=== PATIENT | female | born 1985 | race American Indian/Alaskan Native ===

== ENCOUNTER 2018-05-12 11:32 | Inpatient (IN) | payer BC, MEDICAID ==
[2018-05-12 11:41] VITALS: BMI 37.2
--- NOTE | 2018-05-12 11:58 | ED PDOC ---
Arrival/HPI - General Chief Complaint: High Blood Pressure Time Seen by Provider: 05/12/18 11:54 Historian: Patient - History of Present Illness Narrative History of Present Illness (Text): 05/12/18 11:57 32 f with pmhx of hypertension and a gastric sleeve surgery last year presents to the ED with high blood pressure earlier today. Patient states she is experiencing a headache. Patient reports she has not taken her medication for the past 6-7 months and was sent to the ER by Dr. Vincent, who she saw earlier today. Patient states she has taken 2 pills of Aleve and 3 pills of Advil for the pain to no relief. Patient denies any chest pain, nausea, vomiting or any other complaints. PMD: Dr. Vincent Time/Duration: 4-6 hours (earlier today) Symptom Onset: Gradual Activities at Onset: Light Context: Other (Doctor's office) Past Medical History - Provider Review Nursing Documentation Reviewed: Yes - Infectious Disease Hx of Infectious Diseases: None - Tetanus Immunization Tetanus Immunization: Unknown - Cardiac Hx Cardiac Disorders: Yes Hx Hypertension: Yes - Pulmonary Hx Respiratory Disorders: No - Neurological Hx Neurological Disorder: No - HEENT Hx HEENT Disorder: No - Renal Hx Renal Disorder: No - Endocrine/Metabolic Hx Endocrine Disorders: No - Hematological/Oncological Hx Blood Disorders: No - Integumentary Hx Dermatological Disorder: No - Musculoskeletal/Rheumatological Hx Musculoskeletal Disorders: No - Gastrointestinal Hx Gastrointestinal Disorders: No - Genitourinary/Gynecological Hx Genitourinary Disorders: No - Psychiatric Hx Psychophysiologic Disorder: No Hx Substance Use: No - Past Surgical History Past Surgical History: No Previous - Surgical History Hx Section: Yes (x1) Other/Comment: gastric sleeve - Anesthesia Hx Anesthesia: No Hx Anesthesia Reactions: No Hx Malignant Hyperthermia: No - Suicidal Assessment Feels Threatened In Home Enviroment: No Family/Social History - Physician Review Nursing Documentation Reviewed: Yes Family/Social History: No Known Family HX Smoking Status: Never Smoked Hx Alcohol Use: No Hx Substance Use: No Hx Substance Use Treatment: No Allergies/Home Meds Allergies/Adverse Reactions: Allergies No Known Allergies Allergy (Verified 03/29/15 05:23) Review of Systems - Physician Review All systems were reviewed & negative as marked: Yes - Review of Systems Cardiovascular: absent: Chest Pain Gastrointestinal: absent: Nausea, Vomiting Neurological: Headache Physical Exam - Physical Exam Narrative Physical Exam (Text): 05/12/18 12:00 Gen: VS reviewed, alert, well developed, well nourished, nontoxic, mild distress. ENT: normal pharynx. Eye: EOMI, PERRL. Neck: no JVD, supple, no adenopathy. CV: regular rate, regular rhythm, no rubs, no murmur, no gallops, S1, S2, pulses equal and strong. Pulm: no distress, clear to auscultation, no wheeze, no rhonchi, breath sounds equal, no rales. Abd: soft, nontender, no guarding, no rebound, no rigidity, normal bowel sounds. Ext: no edema. Skin: good color, no rash, no cyanosis. Psych: responds appropriately to questions, normal affect. Neuro: oriented x 3, CN2-12 intact grossly, motor intact, sensation intact. Vital Signs Reviewed: Yes Vital Signs Temp Pulse Resp BP Pulse Ox 05/12/18 11:33 99.5 F 104 H 18 229/151 H 97 Temperature: Afebrile Blood Pressure: Hypertensive Pulse: Tachycardic Respiratory Rate: Normal Appearance: Positive for: Well-Appearing, Non-Toxic Medical Decision Making ED Course and Treatment: 05/12/18 15:28 Leaving Against Medical Advice (AMA): The patient is choosing to leave against medical advice. I have personally explained to the patient that choosing to do so may result in permanent bodily harm or . I have discussed at great length that without further evaluation and monitoring there may be unforeseen circumstances and/or deterioration causing permanent bodily harm, disability or as a result of their choice. The patient is alert, oriented, and shows the mental capacity to make clear decisions regarding the patients health care at this time. The patient continues to wish to leave against medical advice. In light of the patients decision to leave against medical advice, follow-up has been arranged and the patient is aware of the importance to following up as instructed. The patient has been advised that they should return to the em ergency room immediately if they change their mind at any time, or if their condition begins to change or worsen in any way. 05/12/18 15:55 for over the past hour i have been back and forth explaining to the patient the severity of her illness and its critical nature. i have even had a discussion with the patient's godmother to attempt to convince patient to stay. at this time, the patient's godmother is coming to the ED to assist talking the patient to stay for admission. in the meantime, the patient's blood pressure has progessively escalated back to critical level- will retart gonzález hutson. 05/12/18 16:40 Patient has decided to stay. 05/12/18 16:[address] meadows, patient to be admitted for severe hypertension requiring IV titrateable medication. awaiting phone call back from icu for admission/disposition. 05/12/18 17:[address] ernst, core filer, will see pt in consultation - Critical Care Critical Care Minutes: 30 minutes (critical care for critical illness, multiple bedside evaluations and management updates to the patient) - RAD Interpretation Narrative RAD Interpretations (Text): 05/12/18 14:11 Procedure: Head CT without contrast Time: 05/12/2018 13:52:11 Dictator: Eva Dan MD Impression: No acute intracranial pathology identified. System Specialist: Radiologist - EKG Interpretation EKG Interpretation (Text): 05/12/18 16:37 1149: sinus tachycardia at 101 bpm, nml qrs, nml axis, lvh, nonspecific t wave abn Interpreted by ED Physician: Yes - Scribe Statement The provider has reviewed the documentation as recorded by the Brayden Woods All medical record entries made by the Scribe were at my direction and personally dictated by me. I have reviewed the chart and agree that the record accurately reflects my personal performance of the history, physical exam, medical decision making, and the department course for this patient. I have also personally directed, reviewed, and agree with the discharge instructions and disposition. Disposition/Present on Arrival - Present on Arrival History of DVT/PE: No History of Uncontrolled Diabetes: No Urinary Catheter: No History of Decub. Ulcer: No History Surgical Site Infection Following: None - Disposition Forms: Qu[place] (Romansh)
[2018-05-12] MEDS: Nicardipine 20 MG/200 ML 20 MG/200 ML BAG IV PRN ×3 (12:24→15:52)
[2018-05-12 12:29] LABS: BASO # 0.02 K/mm3 (0.0-2.0); BASO % 0.3 % (0.0-3.0); EOS # 0.1 (0.0-0.7); EOS % 1.3 % (1.5-5.0); GRAN # 4.65 (1.4-6.5); GRAN % 65.3 % (50.0-68.0); LYMPH # 1.8 (1.2-3.4); LYMPH % 24.7 % (22.0-35.0); MEAN CELL VOLUME 74.6 fl (80.0-105.0); MEAN CORPUSCULAR HEMOGLOBIN 23.1 pg (25.0-35.0); MEAN CORPUSCULAR HGB CONC 30.9 g/dl (31.0-37.0); MONO # 0.6 (0.1-0.6); MONO % 8.4 % (1.0-6.0); PLATELET COUNT 212 10^3/uL (120.0-450.0); RBC 4.77 10^6/uL (3.5-6.1); RED CELL DISTRIBUTION WIDTH 17.4 % (11.5-14.5); WHITE BLOOD COUNT 7.1 10^3/uL (4.5-11.0)
[2018-05-12 12:33] LABS: INR 1.18; PARTIAL THROMBOPLASTIN TIME 25.9 Seconds (25.1-36.5); PROTHROMBIN TIME 13.6 SECONDS (9.4-12.5)
[2018-05-12 12:42] LABS: ALB/GLOB RATIO 1.1 (1.1-1.8); ALBUMIN 4.1 g/dL (3.0-4.8); ALT/SGPT 20 U/L (7-56); AST/SGOT 28 U/L (14-36); BLOOD UREA NITROGEN 18 mg/dL (7-21); CALCIUM 8.3 mg/dL (8.4-10.5); GFR NON-AFRICAN AMERICAN > 60
[2018-05-12 12:53] LABS: TROPONIN I < 0.01 ng/mL
[2018-05-12 13:48] LABS: BARBITURATES, UR NEGATIVE (NEGATIVE); BENZODIAZEPINES, UR NEGATIVE (NEGATIVE); OPIATES, UR NEGATIVE (NEGATIVE); PHENCYCLIDINE, UR NEGATIVE (NEGATIVE)
--- NOTE | 2018-05-12 13:56 | CT ---
Date of service: 05/12/2018 PROCEDURE: CT HEAD WITHOUT CONTRAST. HISTORY: headache, ICH COMPARISON: None available. TECHNIQUE: Axial computed tomography images were obtained through the head/brain without intravenous contrast. Radiation dose: Total exam DLP = 858.8 mGy-cm. This CT exam was performed using one or more of the following dose reduction techniques: Automated exposure control, adjustment of the mA and/or kV according to patient size, and/or use of iterative reconstruction technique. FINDINGS: HEMORRHAGE: No intracranial hemorrhage. BRAIN: No mass effect or edema. No atrophy or chronic microvascular ischemic changes. VENTRICLES: No hydrocephalus. CALVARIUM: Unremarkable. PARANASAL SINUSES: Unremarkable as visualized. No significant inflammatory changes. MASTOID AIR CELLS: Unremarkable as visualized. No inflammatory changes. OTHER FINDINGS: None. IMPRESSION: No acute intracranial pathology identified.
--- NOTE | 2018-05-12 15:14 | CARD ---
APPROVED REPORT Date of service: 05/12/2018 EKG Measurement Heart [id number] <Conclusion> Sinus tachycardia Possible Left atrial enlargement Borderline ECG
[2018-05-12] MEDS ORDERED: Nicardipine 20 MG/200 ML 20 MG/200 ML BAG IV PRN (15:57)
--- NOTE | 2018-05-12 17:57 | CP.PCM.CON ---
History of Present Illness - History of Present Illness History of Present Illness: MICU CONSULT NOTE HPI Patient is 32yo female with PMHx of obesity s/p gastric surgery, HTN, not on any home meds, presents after being sent in from her PMDs office for elevated SBP ~250 (as per the ER staff). Pt notes since yesterday she has had a headache, taken 2-3 Adivl pills, without any alleviation. Upon presentation to the ER pts BP 229/151, started on Cardene drip. Pt reports she took herself off Lisinipril few months ago. Denies CP, SOB, palpitations, dizziness, N/V, abd pain. No other constitutional symptoms. PMHx obesity, HTN PSHx gastric surgery Meds NONE FHx NC Social denies smoking, drug use;+ occasional etoh Allergies NKDA Review of Systems - Review of Systems Review of Systems: as per HPI Past Patient History - Infectious Disease Hx of Infectious Diseases: None - Tetanus Immunizations Tetanus Immunization: Unknown - Past Social History Smoking Status: Never Smoked - CARDIAC Hx Cardiac Disorders: Yes Hx Hypertension: Yes - PULMONARY Hx Respiratory Disorders: No - NEUROLOGICAL Hx Neurological Disorder: No - HEENT Hx HEENT Problems: No - RENAL Hx Chronic Kidney Disease: No - ENDOCRINE/METABOLIC Hx Endocrine Disorders: No - HEMATOLOGICAL/ONCOLOGICAL Hx Blood Disorders: No - INTEGUMENTARY Hx Dermatological Problems: No - MUSCULOSKELETAL/RHEUMATOLOGICAL Hx Musculoskeletal Disorders: No - GASTROINTESTINAL Hx Gastrointestinal Disorders: No - GENITOURINARY/GYNECOLOGICAL Hx Genitourinary Disorders: No - PSYCHIATRIC Hx Psychophysiologic Disorder: No Hx Substance Use: No - SURGICAL HISTORY Hx Section: Yes (x1) Other/Comment: gastric sleeve - ANESTHESIA Hx Anesthesia: No Hx Anesthesia Reactions: No Hx Malignant Hyperthermia: No Meds Allergies/Adverse Reactions: Allergies Allergy/AdvReac Type Severity Reaction Status Date / Time No Known Allergies Allergy Verified 03/29/15 05:23 - Medications Medications: Current Medications Nicardipine HCl (Cardene Iv Premix) 20 mg in 200 mls @ 50 mls/hr IV .Q4H PRN; Protocol PRN Reason: TITRATE PER MD ORDER Last Admin: 05/12/18 15:52 Dose: 50 mls/hr Lisinopril (Zestril) 10 mg PO DAILY VON Physical Exam - Constitutional Appears: Non-toxic, No Acute Distress - Head Exam Head Exam: NORMAL INSPECTION - Eye Exam Eye Exam: Normal appearance - ENT Exam ENT Exam: Mucous Membranes Moist - Neck Exam Neck exam: Positive for: Full Rom - Respiratory Exam Respiratory Exam: Clear to Auscultation Bilateral, NORMAL BREATHING PATTERN - Cardiovascular Exam Cardiovascular Exam: REGULAR RHYTHM, +S1, +S2 - GI/Abdominal Exam GI & Abdominal Exam: Normal Bowel Sounds, Soft - Back Exam Back exam: NORMAL INSPECTION - Neurological Exam Neurological exam: Alert, Oriented x3 - Psychiatric Exam Psychiatric exam: Normal Affect - Skin Skin Exam: Normal Color, Warm Results - Vital Signs Recent Vital Signs: Last Vital Signs Temp 99.5 F 05/12/18 11:33 Pulse 100 H 05/12/18 16:54 Resp 18 05/12/18 16:54 BP 164/103 H 05/12/18 16:54 Pulse Ox 100 05/12/18 16:54 - Labs Result Diagrams: 05/12/18 12:00 05/12/18 12:00 Labs: Laboratory Results - last 24 hr 05/12/18 05/12/18 05/12/18 12:00 12:00 12:00 WBC 7.1 RBC 4.77 Hgb 11.0 L Hct 35.6 L MCV 74.6 L MCH 23.1 L MCHC 30.9 L RDW 17.4 H Plt Count 212 Gran % 65.3 Lymph % (Auto) 24.7 [place] % (Auto) 8.4 H Eos % (Auto) 1.3 L Baso % (Auto) 0.3 Gran # 4.65 Lymph # (Auto) 1.8 [place] # (Auto) 0.6 Eos # (Auto) 0.1 Baso # (Auto) 0.02 PT 13.6 H INR 1.18 APTT 25.9 Sodium 139 Potassium 3.5 L Chloride 104 Carbon Dioxide 28 Anion Gap 10 BUN 18 Creatinine 1.0 Est GFR ( Amer) > 60 Est GFR (Non-Af Amer) > 60 Random Glucose 92 Calcium 8.3 L Magnesium 1.9 Total Bilirubin 0.4 AST 28 ALT 20 Alkaline Phosphatase 95 Troponin I < 0.01 Total Protein 7.8 Albumin 4.1 Globulin 3.7 Albumin/Globulin Ratio 1.1 TSH 3rd Generation Urine Opiates Screen Urine Methadone Screen Ur Barbiturates Screen Ur Phencyclidine Scrn Ur Amphetamines Screen U Benzodiazepines Scrn U Oth Cocaine Metabols U Cannabinoids Screen 05/12/18 05/12/18 12:00 13:00 WBC RBC Hgb Hct MCV MCH MCHC RDW Plt Count Gran % Lymph % (Auto) [place] % (Auto) Eos % (Auto) Baso % (Auto) Gran # Lymph # (Auto) [place] # (Auto) Eos # (Auto) Baso # (Auto) PT INR APTT Sodium Potassium Chloride Carbon Dioxide Anion Gap BUN Creatinine Est GFR ( Amer) Est GFR (Non-Af Amer) Random Glucose Calcium Magnesium Total Bilirubin AST ALT Alkaline Phosphatase Troponin I Total Protein Albumin Globulin Albumin/Globulin Ratio TSH 3rd Generation 1.35 Urine Opiates Screen Negative Urine Methadone Screen Negative Ur Barbiturates Screen Negative Ur Phencyclidine Scrn Negative Ur Amphetamines Screen Negative U Benzodiazepines Scrn Negative U Oth Cocaine Metabols Negative U Cannabinoids Screen Negative Assessment & Plan - Assessment and Plan (Free Text) Assessment: 32yo female a/w HTN urgency HTN Urgency Obesity Recommend: - supp o2 as needed, duonebs PRN - NO ID issues - BP control, goal MAP reduction in first 24h by NO MORE than 25% - cont Cardene drip, transition to PO meds - ECHO - repeat CE - Low salt diet - GI ppx - DVT ppx - Admit to CCU
[2018-05-12] MEDS ORDERED: Potassium Chloride 20 mEq ER Tab PO STA (18:12)
[2018-05-13] MEDS: Nicardipine 20 MG/200 ML 20 MG/200 ML BAG IV PRN (00:48)
--- NOTE | 2018-05-13 00:50 | HP ---
DATE OF EXAM: 05/12/2018 HISTORY OF PRESENT ILLNESS: Patient is a 32-year-old with history of hypertension, very noncompliant with medication. She went to see Dr. Vincent, who take her blood pressure, was found to be 225/150. Per Dr. Vincent's office called ambulance and she was brought to the emergency room. She has been started on Cardizem drip. Patient used to be on lisinopril, but she stopped taking a couple of months ago. Has headache with some chest pressure. PAST MEDICAL HISTORY: Significant for: 1. Gastric bypass surgery. 2. Hypertension. ALLERGIES: SHE IS NOT ALLERGIC TO ANY MEDICATIONS. MEDICATIONS AT HOME: Currently, she is not on any medications. SOCIAL HISTORY: Denies smoking,drinking, alcohol use. PHYSICAL EXAMINATION GENERAL: She is awake, alert, oriented, communicative, not in any distress. VITAL SIGNS: She is afebrile, pulse 106, respirations 18, blood pressure 165/92. LUNGS: Bilateral fair airflow. No rhonchi or crackles. HEART: S1 and S2 audible. ABDOMEN: Soft, obese, nontender. No rebound. No guarding. NEUROLOGIC: Patient is awake, alert, oriented, communicative, moves all extremities. LABORATORY DATA: WBC 7.1, hemoglobin 11, hematocrit 35.6, and platelets 212. PT 13.6. INR 1.18. Chemistry; sodium 139, potassium 3.5, chloride 104, CO2 of 28, BUN 18, creatinine 1.0. Blood sugar of 92. Urine tox is negative. ASSESSMENT: 1. Uncontrolled hypertension. 2. Hypertensive emergency. PLAN: Patient is being admitted in ICU. She will be tapered off of Cardizem drip. We will followup on electrolytes. Follow up CBC, CMP, thyroid profile, and lipid profile in the a.m. Mandy Murray MD
[2018-05-13 06:16] LABS: BASO # 0.02 K/mm3 (0.0-2.0); BASO % 0.3 % (0.0-3.0); EOS # 0.1 (0.0-0.7); EOS % 1.1 % (1.5-5.0); GRAN # 4.65 (1.4-6.5); GRAN % 65.7 % (50.0-68.0); HEMOGLOBIN 11.8 g/dL (12.0-16.0); LYMPH # 1.9 (1.2-3.4); LYMPH % 26.1 % (22.0-35.0); MEAN CELL VOLUME 74.3 fl (80.0-105.0); MEAN CORPUSCULAR HEMOGLOBIN 23.3 pg (25.0-35.0); MEAN CORPUSCULAR HGB CONC 31.4 g/dl (31.0-37.0); MONO # 0.5 (0.1-0.6); MONO % 6.8 % (1.0-6.0); PLATELET COUNT 208 10^3/uL (120.0-450.0); RBC 5.06 10^6/uL (3.5-6.1); RED CELL DISTRIBUTION WIDTH 17.4 % (11.5-14.5); WHITE BLOOD COUNT 7.1 10^3/uL (4.5-11.0)
[2018-05-13 06:32] LABS: ALBUMIN 3.8 g/dL (3.0-4.8); ALT/SGPT 25 U/L (7-56); AST/SGOT 27 U/L (14-36); BLOOD UREA NITROGEN 13 mg/dL (7-21); CALCIUM 8.5 mg/dL (8.4-10.5); GFR NON-AFRICAN AMERICAN > 60; HDL CHOLESTEROL 51 mg/dL (29-60)
[2018-05-13 06:39] LABS: LDL CHOLESTEROL 111 mg/dL (0-129)
[2018-05-13 06:43] LABS: FREE T4 1.47 ng/dL (0.78-2.19)
[2018-05-13] MEDS ORDERED: Potassium Chloride 20 mEq ER Tab PO STA (08:42)
--- NOTE | 2018-05-13 12:40 | CP.PCM.PN ---
Subjective - Date & Time of Evaluation Date of Evaluation: 05/13/18 Time of Evaluation: 08:00 - Subjective Subjective: Patient seen and examined, no major complaints. BP improved, OFF Cardene drip. Objective - Vital Signs/Intake and Output Vital Signs (last 24 hours): Temp Pulse Resp BP Pulse Ox 99.5 F 90 12 164/75 H 99 05/12/18 11:33 05/13/18 10:48 05/13/18 03:00 05/13/18 10:48 05/13/18 03:00 Intake and Output: 05/13/18 05/13/18 06:59 18:59 Intake Total 100 Balance 100 - Medications Medications: Current Medications Amlodipine Besylate (Norvasc) 10 mg PO DAILY [facility] Last Admin: 05/13/18 10:47 Dose: 10 mg Nicardipine HCl (Cardene Iv Premix) 20 mg in 200 mls @ 50 mls/hr IV .Q4H PRN; Protocol PRN Reason: TITRATE PER MD ORDER Last Titration: 05/13/18 04:00 Dose: 0 mg/hr, 0 mls/hr Lisinopril (Zestril) 10 mg PO DAILY [facility] Last Admin: 05/13/18 10:48 Dose: 10 mg Potassium Chloride (K-Dur 20 Meq Er Tab) 40 meq PO ONCE ONE Stop: 05/13/18 13:01 - Labs Labs: 05/13/18 06:00 05/13/18 06:00 PT 13.6 SECONDS (9.4-12.5) H 05/12/18 12:00 INR 1.18 05/12/18 12:00 APTT 25.9 Seconds (25.1-36.5) 05/12/18 12:00 - Constitutional Appears: Non-toxic, No Acute Distress - Head Exam Head Exam: NORMAL INSPECTION - Eye Exam Eye Exam: Normal appearance - ENT Exam ENT Exam: Mucous Membranes Moist - Respiratory Exam Respiratory Exam: Clear to Ausculation Bilateral, NORMAL BREATHING PATTERN - Cardiovascular Exam Cardiovascular Exam: REGULAR RHYTHM, +S1, +S2 - GI/Abdominal Exam GI & Abdominal Exam: Soft, Normal Bowel Sounds - Extremities Exam Extremities Exam: Full ROM, Normal Inspection - Neurological Exam Neurological Exam: Alert, Awake, Oriented x3 Assessment and Plan - Assessment and Plan (Free Text) Assessment: 32yo female a/w HTN urgency HTN Urgency Obesity - currently afebrile, BP 140-160, comfortable in NAD, no major complaints, OFF Cardene drip Recommend: - supp o2 as needed, duonebs PRN - NO ID issues - BP control, goal MAP reduction in first 24h by NO MORE than 25% - Lisinopril, Norvasc - ECHO - Low salt diet - GI ppx - DVT ppx - Stable, transfer to telemetry
[2018-05-13] MEDS ORDERED: Potassium Chloride 20 mEq ER Tab PO ONE (13:00)
[2018-05-13 16:16] VITALS: RESP 16; TEMP 98
[2018-05-13 18:01] VITALS: BP 154/86; PULSE 92; O2SAT 100
--- NOTE | 2018-05-14 07:27 | DS ---
HISTORY OF PRESENT ILLNESS: The patient is 32 years old seen and examined. The patient was seen by Dr. Vincent yesterday. She was found to have blood pressure of 225/150. Ambulance was called, the patient was brought to ER. Her blood pressure was above 200 in the ER. Also she was started on Cardizem drip, admitted in ICU. She was given p.o. Norvasc and lisinopril and her Cardizem drip was tapered down. I saw the patient this morning, she was anxious to go home. She states there is no way she could stay. She was given dose of Norvasc and lisinopril. Her blood pressure was still running high; she was given another dose of clonidine and follow up blood pressure around 06:00 is 154/86. The patient is anxious to go home. She states she is going to sign against medical advice if she is not discharged. PHYSICAL EXAMINATION: GENERAL: She is awake, alert, oriented, communicative. VITAL SIGNS: She is afebrile, pulse 92, respirations 16, blood pressure 154/86. LUNGS: Bilateral fair airflow. No rhonchi or crackle. HEART: S1 and S2 audible. ABDOMEN: Soft and nontender. No rebound. No guarding. NEUROLOGIC: The patient is awake, alert, oriented, communicative. LABORATORY DATA: WBC 7.1, hemoglobin 11.8, hematocrit 37.6, platelets 208. Chemistry; sodium 136, potassium 3.0, chloride 102, CO2 28, BUN 13, creatinine 0.9, blood sugar of 92. ASSESSMENT: 1. Uncontrolled hypertension. 2. Headache. 3. Morbid obesity. 4. Status post gastric sleeve. PLAN: The patient was given prescription on Norvasc 10 mg daily. She was given lisinopril 10 mg. I advised the patient to stay another night, but she states she has a little baby; she has to get out and get him. She is advised to follow up with Dr. Vincent in a.m. to follow up her blood pressure and adjust her medication. Mandy Murray MD [facility] # [id number]
== END 2018-05-13 19:24 | disposition home or self-care (01) | DRG 305 ==
LOC: ED 11:32 → ERH 16:59 → ICU 22:46
PROVIDERS: ADMIT Internal Medicine; ATTEND Internal Medicine
DX: I16.0 Hypertensive urgency (principal); I16.1 Hypertensive emergency; I10 Essential (primary) hypertension; Z91.14 Patient's other noncompliance with medication regimen; R51 Headache; E66.01 Morbid (severe) obesity due to excess calories; Z68.37 Body mass index [BMI] 37.0-37.9, adult; Z98.84 Bariatric surgery status